=== PATIENT | female | born 2000 | race Caucasian/White ===

== ENCOUNTER 2020-08-11 20:11 | Inpatient (IN) ==
[2020-08-11] MEDS ORDERED: BUTORPHANOL 2 MG/ML VIAL IM ONE (21:22)
[2020-08-11] MEDS ORDERED: PROMETHAZINE 25 MG/1 ML VIAL IM ONE (21:23)
[2020-08-11 21:59] LABS: Bacteria,Urine Occasional /HPF (Few); Bilirubin,Urine Negative (Negative); Blood, Urine Small mg/dL (Negative); Glucose,Urine (UA) Negative (Negative); Ketones,Urine 20 mg/dL (Negative); Mucus,Urine Occasional /LPF (Occasional); Nitrite,Urine Negative (Negative); Protein,Urine Negative; RBC,Urine 1 /HPF (0-4); Squamous Epithelial Cell,Urine Occasional /HPF (0-10); Transitional Epi Cells,Urine Occasional /HPF (<1); Urine Appearance CLEAR (Clear); Urine Color Yellow (Yellow); Urine Specific Gravity 1.012 (1.001-1.035); Urine Urobilinogen < 2.0 EU/DL (0.2-1.0); WBC,Urine 2 /HPF (0-6)
[2020-08-12] MEDS ORDERED: ONDANSETRON 4 MG/2 ML VIAL IV PRN ×2 (01:40→08:47)
[2020-08-12] MEDS ORDERED: LACTATED RINGERS 1,000 ML IV ONE (01:40)
[2020-08-12] MEDS ORDERED: diphenhydrAMINE 50 MG/1 ML VIAL IV PRN ×2 (01:44)
[2020-08-12] MEDS ORDERED: FAMOTIDINE 20 MG/2 ML VIAL IV ONE (01:44)
[2020-08-12] MEDS ORDERED: ONDANSETRON 4 MG/2 ML VIAL IV ONE (01:44)
[2020-08-12] MEDS ORDERED: hydrOXYzine HCL 25 MG/1 ML VIAL IM PRN (01:44)
[2020-08-12] MEDS ORDERED: PROMETHAZINE 25 MG/1 ML VIAL IM ONE (01:44)
[2020-08-12] MEDS ORDERED: NALOXONE 0.4 MG/ML VIAL IV PRN (01:44)
[2020-08-12] MEDS ORDERED: CITRIC ACID/SODIUM CITRATE 30 ML UDCUP PO ONE (01:44)
[2020-08-12] MEDS: LACTATED RINGERS 1,000 ML IV SCH ×3 (01:59→04:45)
[2020-08-12] MEDS ORDERED: fentaNYL 2 MCG/ROPIV 0.2% EPID 100 ML EPIDURAL SCH (02:00)
[2020-08-12 02:03] LABS: Basophils # 0.1 10*3/uL (0.0-0.2); Basophils % 0.4 % (0.0-0.8); Hematocrit 33.8 VOL% (35.7-47.0); Hemoglobin 11.1 GM/DL (12.0-16.0); Immature Granulocytes % 0.8 %; Immature Granulocytes Absolute 0.12 #; Lymphocytes # 0.8 10*3/uL (1.4-4.0); Lymphocytes % 5.7 % (21.3-54.2); Mean Corpuscular HGB Conc 32.8 GM/DL (32-36); Mean Corpuscular Volume 79.3 FL (87-102); Mean Platelet Volume 12.4 FL (9.6-12.0); Monocytes % 4.5 % (1.7-12.7); Neutrophils % 88.6 % (38.7-73.9); Platelet Count 222 T/CUMM (130-400); Red Blood Count 4.26 MC/CUMM (3.8-5.5); Red Cell Distribution Width 13.8 % (9.3-17.3); White Blood Count 14.1 T/CUMM (4-12)
[2020-08-12 02:23] LABS: Albumin 2.4 G/DL (3.4-5.0); Bilirubin,Total 0.6 MG/DL (0.2-1.0); Calcium 8.9 MG/DL (8.5-10.1); Osmolality,Calculated 266.1 MOS/KG (273-304); Total Protein 6.3 G/DL (6.4-8.3)
[2020-08-12] MEDS: ePHEDrine 50 MG/ML VIAL IV PRN ×3 (03:37→05:01)
[2020-08-12 04:49] LABS: Bilirubin,Urine Negative (Negative); Blood, Urine Negative (Negative); Glucose,Urine (UA) Negative (Negative); Ketones,Urine 80 mg/dL (Negative); Mucus,Urine Occasional /LPF (Occasional); Nitrite,Urine Negative (Negative); Protein,Urine 30 MG/DL; RBC,Urine 1 /HPF (0-4); Squamous Epithelial Cell,Urine Occasional /HPF (0-10); Urine Appearance CLEAR (Clear); Urine Color Yellow (Yellow); Urine Specific Gravity 1.023 (1.001-1.035); Urine Urobilinogen < 2.0 EU/DL (0.2-1.0); WBC,Urine 1 /HPF (0-6)
[2020-08-12] MEDS ORDERED: miSOPROStoL 200 MCG TABLET ONE (06:32)
[2020-08-12] MEDS ORDERED: CARBOPROST TROMETHAMINE 250 MCG/ML AMP IM ONE (06:33)
[2020-08-12] MEDS ORDERED: METHYLERGONOVINE 0.2 MG/1 ML AMP ONE (06:33)
[2020-08-12] MEDS ORDERED: TRANEXAMIC ACID 1,000 MG/10 ML VIAL ONE (06:33)
[2020-08-12] MEDS ORDERED: OXYTOCIN/LR 20 UNIT/1,000 ML BAG IV ONE ×2 (06:33→08:47)
[2020-08-12] MEDS ORDERED: SODIUM CHLORIDE 0.9% 100 ML IV ONE (06:33)
[2020-08-12] MEDS ORDERED: LIDOCAINE 1% 50 ML VIAL ONE (08:34)
[2020-08-12] MEDS ORDERED: oxyCODONE/ACETAMINOPHEN 5-325 MG TABLET PO PRN ×2 (08:47)
[2020-08-12] MEDS ORDERED: BISACODYL 10 MG SUPP RECTAL PRN (08:47)
[2020-08-12] MEDS ORDERED: DIPH/TET/ACEL PERT BOOSTER VACCINE 0.5 ML VIAL IM ONE (08:47)
[2020-08-12] MEDS ORDERED: LANOLIN 50% CREAM 0.3 OZ TUBE TOP PRN (08:47)
[2020-08-12] MEDS ORDERED: RHO(D) IMMUNE GLOBULIN 300 MCG SYRINGE IM ONE (08:47)
[2020-08-12] MEDS ORDERED: HYDROCORTISONE 2.5% RECTAL CREAM 30 GM TUBE TOP PRN (08:47)
[2020-08-12] MEDS ORDERED: MEASLES/MUMPS/RUBELLA VACCINE 0.5 ML VIAL SUBCUT ONE (08:47)
[2020-08-12] MEDS ORDERED: WITCH HAZEL PADS 100/JAR TOP PRN (08:47)
[2020-08-12] MEDS ORDERED: BENZOCAINE 20%/MENTHOL 0.5% SPRAY 56 GM CAN TOP PRN (08:47)
[2020-08-12] MEDS ORDERED: ACETAMINOPHEN 325 MG TABLET PO PRN (08:47)
[2020-08-12] MEDS ORDERED: METHYLERGONOVINE 0.2 MG/1 ML AMP IM ONE (08:51)
[2020-08-12 08:52] LABS: Cord Venous Blood HCO3 19.1 MMOL/L; Cord Venous Blood PCO2 42.5 MMHG; Cord Venous Blood PO2 19.5 MMHG
[2020-08-12 08:53] LABS: Cord Arterial Blood HCO3 17.3 MMOL/L
[2020-08-12] MEDS: IBUPROFEN 800 MG TABLET PO PRN (22:05)
[2020-08-12] MEDS: DOCUSATE SODIUM 100 MG CAPSULE PO SCH (22:05)
[2020-08-13 06:45] LABS: Basophils # 0.1 10*3/uL (0.0-0.2); Basophils % 0.7 % (0.0-0.8); Eosinophils # 0.2 10*3/uL (0.0-0.87); Eosinophils % 1.9 % (0.00-10.9); Hematocrit 30.1 VOL% (35.7-47.0); Hemoglobin 9.6 GM/DL (12.0-16.0); Immature Granulocytes % 0.7 %; Immature Granulocytes Absolute 0.08 #; Lymphocytes # 2.1 10*3/uL (1.4-4.0); Lymphocytes % 18.6 % (21.3-54.2); Mean Corpuscular HGB Conc 31.9 GM/DL (32-36); Mean Corpuscular Volume 81.8 FL (87-102); Monocytes % 6.8 % (1.7-12.7); Neutrophils % 71.3 % (38.7-73.9); Platelet Count 175 T/CUMM (130-400); Red Blood Count 3.68 MC/CUMM (3.8-5.5); Red Cell Distribution Width 13.9 % (9.3-17.3); White Blood Count 11.1 T/CUMM (4-12)
[2020-08-13] MEDS: DOCUSATE SODIUM 100 MG CAPSULE PO SCH ×2 (09:04→20:14)
[2020-08-13] MEDS: IBUPROFEN 800 MG TABLET PO PRN (20:14)
[2020-08-14 07:51] VITALS: BP 124/71
[2020-08-14] MEDS: DOCUSATE SODIUM 100 MG CAPSULE PO SCH (08:01)
== END 2020-08-14 11:55 | disposition home or self-care (01) | DRG 807 ==
LOC: N.LDOUT 20:11 → N.LD 20:24 → N.OB 08-12 12:23
PROVIDERS: ADMIT Specialist; ATTEND Obstetrics & Gynecology